=== PATIENT | female | born 1985 ===

== ENCOUNTER → 2017-04-19 | Outpatient (CLI) | payer BC ==
[~2017-04-19] MED LIST: AMOX500 PO; HYDACE5 PO; IBUP800 PO; Magnesium500 M1 PO; ORTHOTRICYCLINE; PHENA200 PO; PRENATAL + DHA1 EAC1 PO; RXPHEN200 PO; SULTRIDS PO
== END ==
LOC: LAB SHORT 10:40
DX: Z33.1 Pregnant state, incidental (principal)
CPT/HCPCS: 87081; 87653

== ENCOUNTER 2017-05-28 21:50 | Inpatient (IN) | payer BC ==
[~2017-05-28] VITALS: Ht 160 cm; Wt 83.0 kg
[~2017-05-28 21:50] MED LIST changes: -IBUP800 PO; -Magnesium500 M1 PO; -PRENATAL + DHA1 EAC1 PO
[2017-05-28] MEDS ORDERED: PRENATAL + DHA1 EAC1 PO (22:55)
[2017-05-28] MEDS ORDERED: Magnesium500 M1 PO (22:56)
[2017-05-28 23:08] LABS: BASOPHILS ABSOLUTE AUTO 0.05 K/mm3 (0.00-0.23); BASOPHILS PERCENT AUTO 0 % (0-2); EOSINOPHILS ABSOLUTE AUTO 0.05 K/mm3 (0.00-0.68); EOSINOPHILS PERCENT AUTO 0 % (0-6); Hematocrit 34.8 % (33.0-51.0); Hemoglobin 12.2 g/dL (11.5-16.0); IMMATURE GRAN ABSOLUTE AUTO 0.08 K/mm3 (0.00-0.10); IMMATURE GRAN PERCENT AUTO 1 % (0-1); LYMPHOCYTES ABSOLUTE AUTO 2.08 K/mm3 (0.84-5.20); LYMPHOCYTES PERCENT AUTO 16 % (21-46); MONOCYTES ABSOLUTE AUTO 0.77 K/mm3 (0.16-1.47); MONOCYTES PERCENT AUTO 6 % (4-13); Mean Corpuscular HGB 31.4 pg (26.0-34.0); Mean Corpuscular HGB Conc 35.1 g/dL (31.5-36.5); Mean Corpuscular Volume 90 fL (80-100); NEUTROPHILS ABSOLUTE AUTO 10.06 K/mm3 (1.96-9.15); NEUTROPHILS PERCENT AUTO 77 % (41-73); Red Blood Cell Count 3.88 M/mm3 (3.80-5.20); White Blood Cell Count 13.09 K/mm3 (4.00-11.30)
[2017-05-28 23:10] LABS: Mean Platelet Volume 12.4 fL (9.1-12.4); Platelet Count 159 K/mm3 (150-400)
[2017-05-29 21:24] LABS: PCO2 Cord - Arterial 57.4 mmHg (40-50); PO2 Cord - Arterial 16.4 mmHg (16-20); pH Cord - Arterial 7.14 (7.28-7.35)
[2017-05-29 21:25] LABS: PCO2 Cord - Venous 40.2 mmHg (40-50); PO2 Cord - Venous 23.3 mmHg (28-32); pH Umbilical Cord - Venous 7.26 (7.26-7.35)
[2017-05-30 05:55] LABS: BASOPHILS ABSOLUTE AUTO 0.04 K/mm3 (0.00-0.23); BASOPHILS PERCENT AUTO 0 % (0-2); EOSINOPHILS PERCENT AUTO 0 % (0-6); Hematocrit 34.4 % (33.0-51.0); Hemoglobin 11.7 g/dL (11.5-16.0); IMMATURE GRAN ABSOLUTE AUTO 0.17 K/mm3 (0.00-0.10); IMMATURE GRAN PERCENT AUTO 1 % (0-1); LYMPHOCYTES ABSOLUTE AUTO 1.63 K/mm3 (0.84-5.20); LYMPHOCYTES PERCENT AUTO 7 % (21-46); MONOCYTES ABSOLUTE AUTO 1.41 K/mm3 (0.16-1.47); MONOCYTES PERCENT AUTO 6 % (4-13); Mean Corpuscular HGB 31.4 pg (26.0-34.0); Mean Corpuscular Volume 92 fL (80-100); Mean Platelet Volume 11.9 fL (9.1-12.4); NEUTROPHILS ABSOLUTE AUTO 19.36 K/mm3 (1.96-9.15); NEUTROPHILS PERCENT AUTO 86 % (41-73); Platelet Count 186 K/mm3 (150-400); RDW Coefficient Variation 12.2 % (11.7-14.2); RDW Standard Deviation 40.7 fL (35.1-46.3); Red Blood Cell Count 3.73 M/mm3 (3.80-5.20); White Blood Cell Count 22.61 K/mm3 (4.00-11.30)
[2017-05-31] MEDS ORDERED: IBUP800 PO (09:37)
== END 2017-05-31 12:00 | disposition home or self-care (01) | DRG 775 ==
LOC: BC 21:50
PROVIDERS: Advanced Practice Midwife; Obstetrics & Gynecology
PROC: 10D07Z6 Extraction of Products of Conception, Vacuum, Via Natural or Artificial Opening (ICD-10-PCS; principal; 2017-05-29)
PROC: 10907ZC Drainage of Amniotic Fluid, Therapeutic from Products of Conception, Via Natural or Artificial Opening (ICD-10-PCS; 2017-05-29)
PROC: 10H07YZ Insertion of Other Device into Products of Conception, Via Natural or Artificial Opening (ICD-10-PCS; 2017-05-29)
PROC: 0UQMXZZ Repair Vulva, External Approach (ICD-10-PCS; 2017-05-29)
DX: O48.0 Post-term pregnancy (principal); O63.1 Prolonged second stage (of labor); O70.0 First degree perineal laceration during delivery; O76 Abnormality in fetal heart rate and rhythm complicating labor and delivery; O77.0 Labor and delivery complicated by meconium in amniotic fluid; Z3A.41 41 weeks gestation of pregnancy; Z37.0 Single live birth
CPT/HCPCS: 36415; 51702; 81003; 82803; 85025; J1885; J2210; J2405; J2590; J3010; J7120

== ENCOUNTER → 2019-08-24 | Outpatient (CLI) | payer BC ==
[~2019-08-24] MED LIST changes: +IBUP800 PO; +Magnesium500 M1 PO; +PRENATAL + DHA1 EAC1 PO
[2019-08-28 14:08] LABS: HPV 16 Negative (Negative); HPV 18 Negative (Negative); HPV OTHER HR TYPES Negative (Negative)
== END | disposition home or self-care (01) ==
LOC: LAB 11:25 → LAB SHORT 11:25
PROVIDERS: Advanced Practice Midwife
DX: Z01.419 Encounter for gynecological examination (general) (routine) without abnormal findings (principal)
CPT/HCPCS: 87624; G0123

== ENCOUNTER 2020-10-29 07:49 | Emergency (ER) | payer BC | END 2020-10-29 11:47 | disposition home or self-care (01) | LOC: ER 07:49 | DX: O99.891 Other specified diseases and conditions complicating pregnancy (principal); R19.7 Diarrhea, unspecified; Z79.899 Other long term (current) drug therapy; Z3A.01 Less than 8 weeks gestation of pregnancy ==

== ENCOUNTER → 2020-12-26 | Outpatient (CLI) | payer BC ==
[2020-12-26 18:50] LABS: Source, Urine Voided
[2020-12-26 19:52] LABS: Appearance, Urine Hazy (Clear); Bilirubin, Urine Neg (Neg); Blood, Urine 5+ (Neg); Color, Urine Yellow (P-Yellow); Glucose Qualitative, Urine Neg (Neg); Ketones, Urine Neg (Neg); Leukocyte Esterase, Urine Neg (Neg); Nitrite, Urine Neg (Neg); Protein, Urine 1+ (Neg); Specific Gravity, Urine 1.025 (1.003-1.022); Urobilinogen, Urine NORM (Normal)
[2020-12-26 20:06] LABS: Squamous Epithelial Cells Few /hpf (Few); White Blood Cells, Urine Rare /hpf (0-5)
[2020-12-26 20:07] LABS: Amorphous Light (0-Heavy); Bacteria Few /hpf; Calcium Oxalate Crystals Mod /hpf; Mucus Light (0-Heavy)
== END | disposition home or self-care (01) ==
LOC: LAB 16:15 → LAB SHORT 16:15
PROVIDERS: Advanced Practice Midwife
DX: R31.9 Hematuria, unspecified (principal)
CPT/HCPCS: 81001

== ENCOUNTER → 2021-05-22 | Outpatient (CLI) | payer BC | END | disposition home or self-care (01) | LOC: LAB SHORT 16:34 | DX: Z34.83 Encounter for supervision of other normal pregnancy, third trimester (principal) | CPT/HCPCS: 87081; 87150 ==

== ENCOUNTER 2021-06-18 02:57 | Inpatient (IN) | payer BC ==
[~2021-06-18] VITALS: Ht 160 cm; Wt 85.0 kg
[2021-06-18 08:15] LABS: BASOPHILS ABSOLUTE AUTO 0.03 K/mm3 (0.00-0.23); BASOPHILS PERCENT AUTO 0 % (0-2); EOSINOPHILS ABSOLUTE AUTO 0.02 K/mm3 (0.00-0.68); EOSINOPHILS PERCENT AUTO 0 % (0-6); Hematocrit 37.1 % (33.0-51.0); Hemoglobin 12.6 g/dL (11.5-16.0); IMMATURE GRAN PERCENT AUTO 1 % (0-1); LYMPHOCYTES ABSOLUTE AUTO 1.41 K/mm3 (0.84-5.20); LYMPHOCYTES PERCENT AUTO 11 % (21-46); MONOCYTES ABSOLUTE AUTO 0.61 K/mm3 (0.16-1.47); MONOCYTES PERCENT AUTO 5 % (4-13); Mean Corpuscular Volume 91 fL (80-100); Mean Platelet Volume 11.9 fL (9.1-12.4); NEUTROPHILS PERCENT AUTO 84 % (41-73); Platelet Count 178 K/mm3 (150-400); RDW Coefficient Variation 12.8 % (11.7-14.2); RDW Standard Deviation 42.3 fL (35.1-46.3); Red Blood Cell Count 4.07 M/mm3 (3.80-5.20); White Blood Cell Count 13.27 K/mm3 (4.00-11.30)
--- NOTE | 2021-06-18 10:40 | NUR ---
ATTEMPTING B/P PATIENT UNABLE TO DO IT AT THIS TIME
--- NOTE | 2021-06-18 14:09 | NUR ---
up voided linen changed
--- NOTE | 2021-06-19 14:00 | NUR ---
1228 DISCHARGE TO HOME WITH NB
== END 2021-06-19 12:25 | disposition home or self-care (01) | DRG 807 ==
LOC: OBS 02:57 → BC 02:58 → OBS 07:59 → BC 08:00
PROVIDERS: Advanced Practice Midwife; ADMIT Family Medicine
PROC: 10E0XZZ Delivery of Products of Conception, External Approach (ICD-10-PCS; principal; 2021-06-18)
PROC: 0UQMXZZ Repair Vulva, External Approach (ICD-10-PCS; 2021-06-18)
DX: O99.344 Other mental disorders complicating childbirth (principal); Z37.0 Single live birth; F32.A Depression, unspecified; Z3A.41 41 weeks gestation of pregnancy; O77.0 Labor and delivery complicated by meconium in amniotic fluid; O69.81X0 Labor and delivery complicated by cord around neck, without compression, not applicable or unspecified; O70.0 First degree perineal laceration during delivery; Z79.899 Other long term (current) drug therapy
CPT/HCPCS: 36415; 59025; 85025; 86850; 86900; 86901; A9270; J1885; J2210; J7120

== ENCOUNTER → 2021-12-11 | Outpatient (CLI) | payer BC | END | disposition home or self-care (01) | LOC: LAB SHORT 15:30 | DX: N30.01 Acute cystitis with hematuria (principal) | CPT/HCPCS: 87086 ==

== ENCOUNTER 2024-05-12 13:53 | Emergency (ER) | payer OTHER, BC ==
[~2024-05-12] VITALS: Ht 160 cm; Wt 78.5 kg
[2024-05-12 13:57] VITALS: BP 130/94
== END 2024-05-12 15:13 | disposition home or self-care (01) ==
LOC: ER 13:53
DX: M54.2 Cervicalgia (principal); V49.9XXA Car occupant (driver) (passenger) injured in unspecified traffic accident, initial encounter
CPT/HCPCS: 99283

== ENCOUNTER 2024-12-13 13:05 | Emergency (ER) | payer OTHER ==
[~2024-12-13] VITALS: Ht 160 cm; Wt 77.1 kg
[2024-12-13] MEDS ORDERED: Ketorolac Tromethamine 15mg Vial IM ONE (13:15)
[2024-12-13 14:32] VITALS: BP 122/81
== END 2024-12-13 14:33 | disposition home or self-care (01) ==
LOC: ER 13:05
DX: S16.1XXA Strain of muscle, fascia and tendon at neck level, initial encounter (principal); S43.401A Unspecified sprain of right shoulder joint, initial encounter; V49.49XA Driver injured in collision with other motor vehicles in traffic accident, initial encounter
CPT/HCPCS: 73030; 96372; 99284-25; J1885

== ENCOUNTER 2025-03-21 06:10 | Day surgery (SDC) | payer OTHER ==
[~2025-03-21] VITALS: Ht 160 cm; Wt 77.9 kg
[2025-03-21] MEDS ORDERED: CeFAZolin Sodium 2,000 MG VIAL ONE (06:24)
[2025-03-21] MEDS ORDERED: IBUP200 PO (06:32)
[2025-03-21] MEDS ORDERED: Bupivacaine HCl 0.25% 30 ML Injection ONE (07:02)
[2025-03-21] MEDS ORDERED: Midazolam HCl 1MG / ML 2ML Vial ONE (07:02)
--- NOTE | 2025-03-21 07:23 | NUR ---
03/21/25 0723 Alexandra Amado T/O PERFORMED AT BEDSIDE WITH DR VIGIL AT 0712 PRIOR TO START OF NERVE BLOCK. INTERSCALENE NERVE BLOCK STARTED AT 0716 AND ENDED AT 0719. SPO2 AND HR MONITORED THROUGHOUT AND PATIENT TOLERATED PROCEDURE WELL. SPO2 AND HR STAYED WNL AT ALL TIMES.
[2025-03-21] MEDS ORDERED: FentaNYL Citrate 50 MCG/ML 2 ML Injection ONE (07:25)
[2025-03-21] MEDS ORDERED: Phenylephrine HCl 100 MCG/ML-NS 10MLSYR (1MG/10ML) ONE (07:35)
[2025-03-21] MEDS ORDERED: Dexamethasone Sod Phos 10 MG/ML 1ML VIAL ONE (07:36)
[2025-03-21] MEDS ORDERED: Ondansetron HCl 2 MG / ML 2ML Vial ONE (07:36)
[2025-03-21] MEDS ORDERED: ePHEDrine Sulfate 50 MG/ML 1ML Injection ONE (08:06)
[2025-03-21] MEDS ORDERED: Ketorolac Tromethamine 30mg Vial ONE (08:38)
[2025-03-21 09:27] VITALS: BP 113/68
--- NOTE | 2025-03-21 10:06 | NUR ---
03/21/25 Luis6 Liliane Smalls PT D/CD HOME WITH ALL BELONGINGS, ACCOMPANIED BY MELISSA. DENIED ANY PAIN OR NAUSEA,WAS ABLE TO VOID PRIOR TO DC HOME.
== END 2025-03-21 10:04 | disposition home or self-care (01) ==
LOC: ORSCSDS 06:10
PROVIDERS: Orthopaedic Surgery
PROC: 0RNJ4ZZ Release Right Shoulder Joint, Percutaneous Endoscopic Approach (ICD-10-PCS; principal; 2025-03-21 07:30)
PROC: 0LQ14ZZ Repair Right Shoulder Tendon, Percutaneous Endoscopic Approach (ICD-10-PCS; principal; 2025-03-21 07:30)
DX: M75.111 Incomplete rotator cuff tear or rupture of right shoulder, not specified as traumatic (principal); M71.9 Bursopathy, unspecified; S43.401D Unspecified sprain of right shoulder joint, subsequent encounter
CPT/HCPCS: C1713; J0166; J0690; J1100; J1885; J2250; J2371; J2405; J2704; J3010; J7120